=== PATIENT | male | born 1975 ===

== ENCOUNTER 2017-06-05 15:30 | Emergency (ER) | payer SELFPAY ==
--- NOTE | 2017-06-05 15:41 | ED PDOC ---
HPI: Psych/Substance Abuse Time Seen by Provider: 06/05/17 15:35 Chief Complaint (Nursing): Alcohol Ingestion Chief Complaint (Provider): Alcohol intoxication ED Caveat: Intoxicated History Per: Patient History/Exam Limitations: no limitations Onset/Duration Of Symptoms: Hrs Additional Complaint(s): Patient is a 41 y/o Faroese-speaking male brought to the emergency department by EMS for acute alcohol intoxication. Patient was found by EMS in front of a restaurant, presenting with slurred speech, alcohol on breath, and an unsteady gait. Facial abrasions also noted. Denies any other complaints. PCP: none provided. Past Medical History Reviewed: Historical Data, Nursing Documentation, Vital Signs Vital Signs: Last Vital Signs Temp 98.0 F 06/05/17 15:32 Pulse 100 H 06/05/17 15:32 Resp 16 06/05/17 15:32 BP 138/95 H 06/05/17 15:32 Pulse Ox 97 06/05/17 15:32 - Family History Family History: States: No Known Family Hx - Allergies Allergies/Adverse Reactions: Allergies Allergy/AdvReac Type Severity Reaction Status Date / Time No Known Allergies Allergy Verified 06/05/17 15:32 Review of Systems ROS Statement: Except As Marked, All Systems Reviewed And Found Negative Skin: Positive for: Other (Facial abrasions with no active bleeding) Neurological: Positive for: Other (unsteady gait and slurred speech due to alcohol intoxication) Physical Exam - Reviewed Nursing Documentation Reviewed: Yes Vital Signs Reviewed: Yes - Physical Exam Appears: Positive for: No Acute Distress Head Exam: Positive for: NORMOCEPHALIC (Abrasions to bridge of nose, left cheek , and above his eyebrows bilaterally with no active bleeding or swelling. No hematoma noted.) Skin: Positive for: Normal Color, Warm, Dry Eye Exam: Positive for: Normal appearance Neck: Positive for: Normal Cardiovascular/Chest: Positive for: Regular Rate, Rhythm Respiratory: Negative for: Accessory Muscle Use, Respiratory Distress Neurologic/Psych: Positive for: Alert, Gait (unsteady) - ECG O2 Sat by Pulse Oximetry: 97 (RA) Pulse Ox Interpretation: Normal Medical Decision Making Medical Decision Making: Time: 15:45 Initial impression: Acute alcohol intoxication Initial plan: Head CT scan without contrast Alcohol serum levels Patient will be placed under observation until clinically sober. 16:06 Patient attempts to ambulate from bed despite unsteady gait. Will be placed on a 1:1 due to risk for elopement. Patient refuses head CT scan. Will give Ativan due to patient's increasing agitation. 1731 Pt was given ativan 2mg IM earlier, however pt is an elopement risk. walking around in room with very unstable gait pt is not combative or threatening others. however pt was placed on 1:1, but pt refuses to stay domcile in bed. therefore for pt safety hazards will need haldol IM 5mg and placed in a monitored room with 1:1 1854 pt doing well sleeping stable VS 19:[address] ~ Scribe Attestation: Documented by Maame Head, acting as a scribe for ASHLEY Frias. Provider Scribe Attestation: All medical record entries made by the Scribe were at my direction and personally dictated by me. I have reviewed the chart and agree that the record accurately reflects my personal performance of the history, physical exam, medical decision making, and the department course for this patient. I have also personally directed, reviewed, and agree with the discharge instructions and disposition. Disposition - Clinical Impression Clinical Impression: Alcohol intoxication - Patient ED Disposition Is Patient to be Admitted: Transfer of Care - Disposition Disposition Time: 10:31 Condition: STABLE Instructions: Alcohol Intoxication (ED) Patient Signed Over To: Trini Wild
--- NOTE | 2017-06-05 19:15 | CT ---
EXAM: CT Head Without Intravenous Contrast CLINICAL HISTORY: 41 years old, male; Injury or trauma; Injury Found outside , slurred speech, ETOH; Initial encounter; Concussion / head injury; Consciousness not specified; Additional info: Head injury ETOH TECHNIQUE: Axial computed tomography images of the head/brain without intravenous contrast. All CT scans at this facility use one or more dose reduction techniques, viz.: automated exposure control; ma/kV adjustment per patient size (including targeted exams where dose is matched to indication; i.e. head); or iterative reconstruction technique. Coronal and sagittal reformatted images were created and reviewed. COMPARISON: No relevant prior studies available. FINDINGS: Brain: No intracranial hemorrhage. No mass. No edema. Ventricles: No hydrocephalus. Bones/joints: No acute fracture. Soft tissues: Unremarkable. Vasculature: Minimal atherosclerotic disease of intracranial arteries. Sinuses: Scattered minimal mucosal thickening. Mastoid air cells: No mastoid effusion. Orbits: Unremarkable as visualized. IMPRESSION: 1. No intracranial hemorrhage. 2. Incidental/non-acute findings are described above.
--- NOTE | 2017-06-06 00:32 | ED PDOC ---
- ECG O2 Sat by Pulse Oximetry: 97 (RA) - Progress ED Course And Treament: Case endorsed to song writer from Usha LINDSEY pending clinical sobriety 2:30 Patient awake, alert, oriented x3. Ambulating steady gait. Stable for discharge. Disposition - Clinical Impression Clinical Impression: Alcohol intoxication - POA Present On Arrival: None - Disposition Disposition: Routine/Home Disposition Time: 02:38 Condition: STABLE Instructions: Alcohol Intoxication (ED)
[2017-06-06 02:52] VITALS: BP 138/88; PULSE 71; RESP 17; TEMP 98.3
[2017-06-06 04:11] VITALS: O2SAT 97
== END 2017-06-06 02:52 | disposition home or self-care (01) ==
LOC: H.ER 15:30
DX: F10.129 Alcohol abuse with intoxication, unspecified (principal); S09.90XA Unspecified injury of head, initial encounter; W19.XXXA Unspecified fall, initial encounter; Y92.89 Other specified places as the place of occurrence of the external cause
CPT/HCPCS: 70450; 82948; 96372; 99283; G0480; J1630; J2060